=== PATIENT | female | born 1950 | race Asian ===

== ENCOUNTER → 2023-04-14 08:14 | Outpatient (REF) | payer MEDICARE, OTHER, SELFPAY ==
[2023-04-14 10:25] LABS: HDL Cholesterol 78 mg/dl; LDL Cholesterol, Calculated 118 mg/dl; Total Cholesterol 209 mg/dl (50-199); Triglyceride 69 mg/dl (10-149); Very Low Density Lipoprotein 13 mg/dl (0-30)
== END ==
LOC: REG 08:14
PROVIDERS: ATTENDING PHYSICIAN Family Medicine
DX: E78.2 Mixed hyperlipidemia (principal)
CPT/HCPCS: 36415; 80061

== ENCOUNTER → 2024-05-03 07:55 | Outpatient (REF) | payer MEDICARE, OTHER, SELFPAY ==
[2024-05-03 09:26] LABS: Glycohemoglobin (HgbA1c) 5.3 % (4.0-5.6)
[2024-05-03 09:27] LABS: ALT (SGPT) 15 U/L (0-35); AST (SGOT) 17 U/L (14-36); Albumin 4.1 g/dl (3.5-5.0); Alkaline Phosphatase 76 U/L (38-126); Blood Urea Nitrogen 13 mg/dl (7-17); Calcium 9.2 mg/dl (8.4-10.2); Carbon Dioxide 29 mmol/L (22-30); Chloride 103 mmol/L (98-107); Glucose 105 mg/dl (70-99); HDL Cholesterol 74 mg/dl; LDL Cholesterol, Calculated 122 mg/dl; Potassium 3.9 mmol/L (3.5-5.1); Sodium 139 mmol/L (135-145); Total Bilirubin 1.1 mg/dl (0.2-1.3); Total Cholesterol 212 mg/dl (50-199); Total Protein 6.5 g/dl (6.3-8.2); Triglyceride 81 mg/dl (10-149); Very Low Density Lipoprotein 16 mg/dl (0-30); eGFR > 60.00
[2024-05-03 09:42] LABS: Vitamin D, 25-OH*** 39.4 ng/mL (30-80)
[2024-05-03 10:15] LABS: Vitamin B12 893 pg/ml (239-931)
== END ==
LOC: REG 07:55
PROVIDERS: ATTENDING PHYSICIAN Family Medicine
DX: E78.2 Mixed hyperlipidemia (principal); I10 Essential (primary) hypertension; R73.9 Hyperglycemia, unspecified; E53.8 Deficiency of other specified B group vitamins; E55.9 Vitamin D deficiency, unspecified
CPT/HCPCS: 36415; 80053; 80061; 82306; 82607; 83036